=== PATIENT | male | born 1990 | race Two or more races ===

== ENCOUNTER 2019-03-24 07:01 | Emergency (ER) | payer BC ==
[~2019-03-24] VITALS: Ht 190.5 cm; Wt 83.5 kg
[2019-03-24] MEDS ORDERED: DEXAMETHASONE SOD PHOSPHATE 10 MG/ML VIAL IV ONE (07:30)
[2019-03-24] MEDS ORDERED: IV NS 0.9% 1,000 ML IV ONE ×2 (07:30)
[2019-03-24] MEDS ORDERED: CEFTRIAXONE 1GM BAG (ER ONLY) 1 GM/50 ML PIGGYBACK IV ONE (07:30)
[2019-03-24] MEDS ORDERED: CEFTRIAXONE 1GM BAG (ER ONLY) 50 ML IV ONE (07:56)
[2019-03-24] MEDS ORDERED: DEXAMETHASONE SOD PHOSPHATE 10 MG/ML VIAL ONE (07:56)
[2019-03-24 10:05] VITALS: BP 132/89
--- NOTE | 2019-03-24 10:05 | NUR ---
Patient discharged to home in stable condition. Written and verbal after care instructions given. Patient verbalizes understanding of instruction.
--- NOTE | 2019-03-24 10:06 | NUR ---
Patient awake alert non distress noted able to ambulated to bathroom ,agrees to follow up PMD in AM
== END 2019-03-24 10:08 | disposition home or self-care (01) ==
LOC: ER 07:01
DX: J02.9 Acute pharyngitis, unspecified (principal); F17.200 Nicotine dependence, unspecified, uncomplicated; Z60.2 Problems related to living alone
CPT/HCPCS: 96365; 96375; 99283; J0696; J1100; J7030 ×2

== ENCOUNTER 2020-07-01 08:45 | Emergency (ER) | payer BC ==
[~2020-07-01] VITALS: Ht 190.5 cm; Wt 83.9 kg
--- NOTE | 2020-07-01 08:56 | NUR ---
CAME IN FOR HEADACHE x 2DAYS. NO RELIEF WITH ADVIL. TO ER BED 1O, PATIENT STATES "IT'S HEADACHE AND PRESSURE AT THE SAME TIME AT THE BACK OF MY EYE". PATIENT HAS HISTORY OF MIGRAINE. HOOKED TO MONITOR, CHANGED TO HOSP GOWN, WARM BLANKET PROVIDED, PATIENT AAO x 4. BREATHING EVEN AND UNLABORED. DR CHEN AT BEDSIDE
--- NOTE | 2020-07-01 09:04 | NUR ---
DR CHEN AT BEDSIDE
[2020-07-01] MEDS ORDERED: METOCLOPRAMIDE HCL 10 MG/2 ML VIAL IV ONE (09:30)
[2020-07-01] MEDS ORDERED: KETOROLAC TROMETHAMINE INJ 30 MG/ML VIAL IV ONE (09:30)
[2020-07-01] MEDS ORDERED: diphenhydrAMINE HCL 50 MG/ML VIAL IV ONE (09:30)
[2020-07-01] MEDS ORDERED: IV NS 0.9% 1,000 ML BAG IV ONE (09:30)
[2020-07-01] MEDS ORDERED: METOCLOPRAMIDE HCL 10 MG/2 ML VIAL ONE (09:31)
[2020-07-01] MEDS ORDERED: KETOROLAC TROMETHAMINE INJ 30 MG/ML VIAL ONE (09:31)
[2020-07-01] MEDS ORDERED: diphenhydrAMINE HCL 50 MG/ML VIAL ONE (09:31)
--- NOTE | 2020-07-01 11:06 | NUR ---
DR CHEN AWARE OF PATIENT'S BP.
[2020-07-01] MEDS ORDERED: CLONIDINE HCL 0.1 MG TABLET ONE (11:18)
[2020-07-01] MEDS ORDERED: CLONIDINE HCL 0.1 MG TABLET PO ONE (11:30)
--- NOTE | 2020-07-01 12:12 | NUR ---
DR HCEN AT BEDSIDE
[2020-07-01] MEDS ORDERED: MORPHINE SULFATE INJ 10 MG/ML DISP.SYRIN IM ONE (12:30)
[2020-07-01] MEDS ORDERED: MORPHINE SULFATE INJ 4 MG/ML DISP.SYRIN ONE (12:34)
[2020-07-01 12:49] LABS: CALCIUM, SERUM 8.9 mg/dL (8.5-10.1); CARBON DIOXIDE 29 mmol/L (21-32); CHLORIDE 102 mmol/L (98-107); CREATININE 0.9 mg/dL (0.6-1.3); GLUCOSE 101 mg/dL (74-106); POTASSIUM 3.9 mmol/L (3.5-5.1); SODIUM SERUM 138 mmol/L (136-145); UREA NITROGEN, BLOOD 11 mg/dL (7-18)
[2020-07-01 13:08] LABS: BASOPHILS % (AUTO) 0.4 % (0.0-2.0); EOSINOPHILS % (AUTO) 1.3 % (0.0-6.0); HEMATOCRIT 44 % (39-51); HEMOGLOBIN 14.5 g/dL (13.5-17.5); LYMPHOCYTES # (AUTO) 0.9 /CMM (0.8-4.8); LYMPHOCYTES % (AUTO) 10.1 % (20.0-44.0); MEAN CORPUSCULAR HGB CONC 33 g/dl (31.0-36.0); MEAN CORPUSCULAR VOLUME 85 fL (80-96); MONOCYTES # (AUTO) 0.5 /CMM (0.1-1.30); MONOCYTES % (AUTO) 5.8 % (2.0-12.0); NEUTROPHILS # (AUTO) 7.5 /CMM (1.8-8.9); NEUTROPHILS % (AUTO) 82.4 % (43.0-81.0); PLATELET COUNT (AUTO) 258 /CMM (150-450); RED BLOOD CELL COUNT(AUTO) 5.13 MIL/uL (4.5-6.0); WHITE BLOOD COUNT (AUTO) 9.1 K/uL (4.3-11.0)
[2020-07-01] MEDS ORDERED: hydrALAZINE HCL IV 20 MG VIAL ONE (13:24)
[2020-07-01] MEDS ORDERED: hydrALAZINE HCL IV 20 MG VIAL IV ONE (13:30)
[2020-07-01 13:54] VITALS: BP 180/100
--- NOTE | 2020-07-01 14:05 | NUR ---
Patient does not wish to proceed with medical care recommended by Dr. Hinojosa. Patient given information related to possible complications, up to and including , which could occur as a result of leaving the hospital at this time. Patient verbalizes understanding of risks involved due to leaving against medical advice. Patient has signed AMA form.
== END 2020-07-01 14:10 | disposition left against medical advice (07) ==
LOC: ER 08:53
DX: R51.9 Headache, unspecified (principal); R94.31 Abnormal electrocardiogram [ECG] [EKG]; R11.2 Nausea with vomiting, unspecified; F17.200 Nicotine dependence, unspecified, uncomplicated; Z60.2 Problems related to living alone
CPT/HCPCS: 36415; 70450; 80048; 84484; 85025; 93005; 96374; 96375; 99285; J0360; J1200; J1885; J2270; J2765; J7030 ×2